=== PATIENT | male | born 1995 | race Caucasian/White ===

== ENCOUNTER 2018-11-10 03:01 | Emergency (ER) | payer OTHER ==
[~2018-11-10] VITALS: Wt 81.8 kg
[2018-11-10 03:02] VITALS: TEMP 96.9
[2018-11-10 08:00] VITALS: BP 110/62; PULSE 82
== END 2018-11-10 07:10 | disposition home or self-care (01) ==
LOC: COL.ER 03:01
DX: F10.129 Alcohol abuse with intoxication, unspecified (principal); Y90.8 Blood alcohol level of 240 mg/100 ml or more